=== PATIENT | male | born 2000 | race Caucasian/White ===

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

== ENCOUNTER 2019-02-15 02:06 | Emergency (ER) | payer BC ==
[2019-02-15] MEDS ORDERED: Ondansetron INJ* 2 MG/ML VIAL IV ONE (02:18)
[2019-02-15] MEDS ORDERED: NS 0.9% 1000 ML** 1,000 ML IV ONE ×2 (02:18→02:35)
[2019-02-15 02:30] LABS: ABS Eosinophils 0.4 10^3/ul (0-0.6); ABS Lymphocytes 0.6 10^3/ul (1.0-4.8); ABS Monocytes 1.3 10^3/ul (0-0.8); Eosinophil % 2.3 %; Hematocrit 48 % (42-52); Hemoglobin 16.5 g/dL (14.0-18.0); Lymphocyte % 3.5 %; Mean Corpuscular HGB Conc 35 g/dL (31-36); Mean Corpuscular Hemoglobin 31 pg (27-31); Mean Corpuscular Volume 88 fL (80-94); Mean Platelet Volume 7.4 fL (7.4-10.4); Nucleated Red Blood Cells % 0.2; Platelet Count 217 10^3/uL (150-450); Red Blood Count 5.43 10^6 /uL (4.18-5.48); Red Cell Distribution Width 12 % (10-15); White Blood Count 18.4 10^3/uL (3.5-10.8)
--- NOTE | 2019-02-15 02:41 | ED ---
GI/ HPI - HPI Summary HPI Summary: 18 y/o male presented to [facility] complaining of nausea over the last 3 hours. Patient also notes abdominal pain (8/10) with vomiting 5 times since onset and experiencing diarrhea but does not "feel sick" and claims no fever. Denies abdominal pain at rest. He only notes eating a burger recently. No past surgical history or related family history is noted. - History of Current Complaint Chief Complaint: EDNauseaVomitDiarrh Time Seen by Provider: 02/15/19 02:17 Stated Complaint: ABD PAIN PER PT DAD Hx Obtained From: Patient, Family/Keyliner Onset/Duration: Started Hours Ago - 3, Still Present Timing: Intermittent - vomiting Current Severity: Severe Pain Intensity: 8 Associated Signs and Symptoms: Positive: Nausea, Vomiting, Diarrhea, Abdominal Pain. Negative: Fever Aggravating Factor(s): Nothing Alleviating Factor(s): Nothing - Allergy/Home Medications Allergies/Adverse Reactions: Allergies Allergy/AdvReac Type Severity Reaction Status Date / Time peanut Allergy Anaphylatic Verified 02/15/19 02:08 Shock PMH/Surg Hx/FS Hx/Imm Hx Endocrine/Hematology History: Denies: Hx Anticoagulant Therapy, Hx Diabetes Cardiovascular History: Denies: Hx Hypertension, Hx Pacemaker/ICD Respiratory History: Reports: Hx Asthma History: Denies: Hx Renal Disease Musculoskeletal History: Denies: Hx Rheumatoid Arthritis, Hx Osteoporosis Sensory History: Denies: Hx Hearing Aid Psychiatric History: Denies: Hx Panic Disorder - Surgical History Surgical History: None Infectious Disease History: No Infectious Disease History: Denies: Traveled Outside the [place] in Last 30 Days - Family History Known Family History: Positive: Other - negative - GI - Social History Alcohol Use: None Substance Use Type: Reports: None Smoking Status (MU): Never Smoked Tobacco Review of Systems Negative: Fever Positive: Abdominal Pain, Vomiting, Diarrhea, Nausea All Other Systems Reviewed And Are Negative: Yes Physical Exam - Summary Physical Exam Summary: Constitutional: Well-developed, Well-nourished, Alert. (-) Distressed Skin: Warm, Dry HENT: Normocephalic; Atraumatic, Dry MM Eyes: Conjunctiva normal Neck: Musculoskeletal ROM normal neck. (-) JVD, (-) Stridor, (-) Nuchal rigidity Cardio: Rhythm regular, rate normal, Heart sounds normal; Intact distal pulses; Radial pulses are 2+ and symmetric. (-) Murmur Pulmonary/Chest wall: Effort normal. (-) Respiratory distress, (-) Wheezes, (-) Rales Abd: Soft, (-) tenderness, (-) Distension, (-) Guarding, (-) Rebound Musculoskeletal: (-) Edema Lymph: (-) Cervical adenopathy Neuro: Alert, Oriented x3 Psych: Mood and affect Normal Triage Information Reviewed: Yes Vital Signs On Initial Exam: Initial Vitals Temp Pulse Resp BP Pulse Ox 97.6 F 96 16 135/80 100 02/15/19 02:06 02/15/19 02:06 02/15/19 02:06 02/15/19 02:06 02/15/19 02:06 Vital Signs Reviewed: Yes Procedures - Sedation Patient Received Moderate/Deep Sedation with Procedure: No Diagnostics - Vital Signs Vital Signs Temp Pulse Resp BP Pulse Ox 02/15/19 02:17 75 137/56 99 02/15/19 02:06 97.6 F 96 16 135/80 100 - Laboratory Result Diagrams: 02/15/19 02:24 02/15/19 02:24 Lab Statement: Any lab studies that have been ordered have been reviewed, and results considered in the medical decision making process. Re-Evaluation - Re-Evaluation First Eval Re-Evaluation Time: 04:02 Change: Improved - feeling better, tolerating PO. Given zofran to go. Will return for worsening symptoms GIGU Course/Dx - Course Course Of Treatment: 18 y/o male p/w acute nausea vomiting and diarrhea. Well- appearing, abdomen soft. Denies abdominal pain. Suspect secondary to gastritis versus food poisoning. He was given 2 L of fluids, Zofran. Labs notable for leukocytosis 18 w neutrophil prominence. Suspect this is secondary to bacterial gastroenteritis, I do not think this is appendicitis as patient has no abdominal pain on exam. Patient advised to return if he has worsening pain, fevers, inability to eat or drink. - Diagnoses Provider Diagnoses: Nausea vomiting and diarrhea Discharge ED - Sign-Out/Discharge Documenting (check all that apply): Patient Departure - D/c - Discharge Plan Condition: Stable Disposition: HOME Prescriptions: Ondansetron ODT TAB* [Zofran 4 MG Odt TAB*] 4 mg PO Q8H PRN 4 Days #12 tab.odt PRN Reason: Nausea/Vomiting Patient Education Materials: Acute Nausea and Vomiting (ED) Referrals: Reese Waterman MD [Primary Care Provider] - Additional Instructions: You were seen in the emergency department for nausea vomiting and diarrhea. You likely have gastroenteritis versus food poisoning. Take Zofran as needed every 8 hours for nausea. Please take this 15 minutes prior to eating. Please follow up with your primary care doctor in next 2-3 days and return to emergency department for severe abdominal pain, fevers, worsening or concerning symptoms. It was a pleasure taking care of you today. - Billing Disposition and Condition Condition: STABLE Disposition: Home - Attestation Statements Document Initiated by Griselda: Yes Documenting Scribe: Anita Hadley Provider For Whom Griselda is Documenting (Include Credential): Dr. Michelle Denies MD Scribe Attestation: Anita Segal scribed for Dr. Michelle Denise MD on 02/15/19 at 0428. Scribe Documentation Reviewed: Yes Provider Attestation: The documentation as recorded by the Anita llamas accurately reflects the service I personally performed and the decisions made by me, Dr. Michelle Denise MD Status of Scribe Document: Viewed
[2019-02-15 02:47] LABS: Albumin 4.9 g/dL (3.2-5.2); Albumin/Globulin Ratio 1.5 (1-3); BUN/Creatinine Ratio 19.8 (8-20); Calcium 9.9 mg/dL (8.6-10.3); EGFR African American 103.3 (>60); EGFR Non-African American 85.3 (>60); Globulin 3.2 g/dL (2-4); Potassium 3.9 mmol/L (3.5-5.0); Total Bilirubin 1.1 mg/dL (0.2-1.0); Total Protein 8.1 g/dL (6.4-8.9)
[2019-02-15] MEDS ORDERED: Ondansetron ODT TAB* 4 MG PO ONE (03:40)
[2019-02-15 04:23] VITALS: BP 121/84
== END 2019-02-15 04:22 | disposition home or self-care (01) ==
LOC: ED 02:06
DX: R12 Heartburn (principal); R19.7 Diarrhea, unspecified; J45.909 Unspecified asthma, uncomplicated
CPT/HCPCS: 36415; 80053; 83690; 85025; 96361; 96374; 99283; A9270-GY; J2405